=== PATIENT | female | born 1960 | race Two or more races ===

== ENCOUNTER → 2018-07-18 | Outpatient (CLI) | payer OTHER ==
[~2018-07-18] MED LIST: CYCL10 PO; LISI20 PO; PREG50 PO; PROM25 PO; ROSU10TA PO; Ultram50 MG PO; Zofran Odt4 MG SL
[2018-07-18 12:40] LABS: Source, Urine Clean Catch
[2018-07-18 13:23] LABS: Appearance, Urine Clear (Clear); Bilirubin, Urine Neg (Neg); Blood, Urine Neg (Neg); Color, Urine Yellow (P-Yellow); Glucose Qualitative, Urine 4+ (Neg); Ketones, Urine Neg (Neg); Leukocyte Esterase, Urine Neg (Neg); Nitrite, Urine Neg (Neg); Protein, Urine 3+ (Neg); Urobilinogen, Urine NORM (Normal)
[2018-07-18 13:41] LABS: Squamous Epithelial Cells Rare /hpf (Few)
[2018-07-18 13:42] LABS: Bacteria Rare /hpf; Red Blood Cells, Urine 0-2 /hpf (0-2); White Blood Cells, Urine 0-2 /hpf (0-5)
== END | disposition home or self-care (01) ==
LOC: LAB 12:39 → LAB SHORT 12:39
PROVIDERS: Internal Medicine
DX: N39.0 Urinary tract infection, site not specified (principal)
CPT/HCPCS: 81001

== ENCOUNTER → 2019-05-08 | Outpatient (CLI) | payer OTHER | END | disposition home or self-care (01) | LOC: LAB EV 16:53 → LAB SHORT 16:53 | DX: N39.0 Urinary tract infection, site not specified (principal) | CPT/HCPCS: 87077; 87086; 87186 ==

== ENCOUNTER 2019-08-22 08:09 | Inpatient (IN) | payer OTHER ==
--- NOTE | 2019-08-20 09:36 | NUR ---
Ambulatory in Day Surgery. History, Chart, Medications and Allergies reviewed before start of procedure.Patient confirms NPO status and agrees with scheduled surgery. Patient reports completing Chlorhexadine shower X2 prior to admission to hospital.PT REPORTS 5 DAYS OF SHOWERS AND MUPIROCIN OINTMENT COMPLETED. Surgical site prepped with 2% Chlorhexidine cloth wipe. Lungs clear T/O to Auscultation. PERSONAL BAG WILL BE TAKEN TO PACU
--- NOTE | 2019-08-20 12:58 | NUR ---
08/20/19 1258 Marichuy Shaw IMPLANTS PLACED IN RIGHT KNEE THAT ARE NOT CURRENTLY IN COMPUTER SYSTEM: REF:[id number], LOT:[id number], EXP:05/23/24, DESCRIPTION:FEMORAL COMPONENT
--- NOTE | 2019-08-20 15:32 | NUR ---
PT ARRIVED TO UNIT FROM PACU. A&OX4. VSS. 02 SATS 98% ON 2L NC. DRESSING TO RLE CDI; WRAPPED IN BYRON WRAP. POLAR PACK IN PLACE. PT RATED PAIN 5/10 UPON ARRIVAL WHICH HAS INCREASED TO 7/10. MEDICATED PER ORDERS FOR PAIN. TOLERATING CLEARS. PROVIDED CRACKERS. CALL LIGHT IN REACH.
--- NOTE | 2019-08-20 18:08 | NUR ---
SUMMARY PT S/P R TKA THIS SHIFT. MEDICATED PT PER ORDERS FOR PAIN, PT REPORTING PAIN LEVEL TOLERABLE AT THIS TIME. PT AMBULATED IN ROOM AND VOIDED. SITTING UP IN CHAIR, EATING DINNER. BYRON WRAP AND AQUACEL TO R KNEE CDI. CALL LIGHT IN REACH.
[2019-08-21 04:51] LABS: BASOPHILS ABSOLUTE AUTO 0.05 K/mm3 (0.00-0.23); BASOPHILS PERCENT AUTO 1 % (0-2); EOSINOPHILS ABSOLUTE AUTO 0.12 K/mm3 (0.00-0.68); EOSINOPHILS PERCENT AUTO 1 % (0-6); Hematocrit 34.6 % (33.0-51.0); Hemoglobin 11.2 g/dL (11.5-16.0); IMMATURE GRAN ABSOLUTE AUTO 0.03 K/mm3 (0.00-0.10); IMMATURE GRAN PERCENT AUTO 0 % (0-1); LYMPHOCYTES ABSOLUTE AUTO 2.58 K/mm3 (0.84-5.20); LYMPHOCYTES PERCENT AUTO 25 % (21-46); MONOCYTES ABSOLUTE AUTO 0.71 K/mm3 (0.16-1.47); MONOCYTES PERCENT AUTO 7 % (4-13); Mean Corpuscular HGB 29.5 pg (26.0-34.0); Mean Corpuscular HGB Conc 32.4 g/dL (31.5-36.5); Mean Corpuscular Volume 91 fL (80-100); Mean Platelet Volume 9.3 fL (9.1-12.4); NEUTROPHILS ABSOLUTE AUTO 6.87 K/mm3 (1.96-9.15); NEUTROPHILS PERCENT AUTO 66 % (41-73); Platelet Count 283 K/mm3 (150-400); RDW Coefficient Variation 13.2 % (11.7-14.2); RDW Standard Deviation 43.8 fL (35.1-46.3); White Blood Cell Count 10.36 K/mm3 (4.00-11.30)
--- NOTE | 2019-08-21 04:54 | NUR ---
SHIFT SUMMARY POD 1 RTKA AA0X4, VSS. DRESSING CDI. POLAR MARIMAR IN PLACE. PT AMBULATING TO AND FROM BATHROOM WITH FWW. FOLLOWING PRECAUTIONS WELL. VOIDING WELL. MEDICATED FOR PAIN PER EMAR. REPORTS PAIN MANAGED WELL WITH MEDICATION. PLAN IS TO WORK WITH PT/OT TODAY AND POSSIBLY DISCHARGE.
[2019-08-21 05:07] LABS: Bun/Creatinine Ratio 18.8 (12.0-20.0); Calcium, Blood 8.8 mg/dL (8.5-10.1); Creatinine, Blood 1.01 mg/dL (0.40-1.00)
--- NOTE | 2019-08-21 08:38 | NUR ---
DR DUGAN HERE RECENTLY TO SEE PT. REPORTS TO HAVE HOSPITALIST CONSULT FOR HTN.
--- NOTE | 2019-08-21 09:20 | NUR ---
DR BAILEY TO SEE PT SHE WAS CONSULTED FOR HTN.
--- NOTE | 2019-08-21 10:23 | NUR ---
THERAPY WORKING WITH PT.
--- NOTE | 2019-08-21 10:30 | NUR ---
PT WORKING WITH PT CHAUNCEY AM.
--- NOTE | 2019-08-21 14:05 | NUR ---
THERAPY IN WITH PT. PT CONT TO REPORT INCREASED PAIN. PT MED WITH FLEXERIL AND LYRICA. PT BEEN MED WITH PAIN MED. DISCUSSED PT'S STATUS WITH ORTHO COORDINATOR.
--- NOTE | 2019-08-21 14:29 | NUR ---
PT STATES OTHER MEDICATIONS STARTING TO HELP WITH PAIN, CONT TO REPORT PAIN 10/20. PT NOT CLEARED BY THERAPY TO GO HOME TODAY, ORTHO COORDINATOR AWARE, CALL OUT TO 'S OFFICE.
--- NOTE | 2019-08-21 15:30 | NUR ---
Patient is sitting on a chair and alert. Patient tells me about how her surgery went and how her pain is at the time of visit (8). Patient explains that she has recently been given pain meds. Patient tells me about her lutheran background, her family dynamics and the [place]. Patient tells me personal stories as well. I listen empathically, reinforce helpful attitudes and practices, encourage self-care and provide pastoral counseling specialist and prayer. Patient responds well and states that she has a greater degree of peace. I will continue to remain available to patient and family.
--- NOTE | 2019-08-21 17:08 | NUR ---
SHIFT SUMMARY PT POD #1 FOR RIGHT TOTAL KNEE. PT REPORTS PAIN AT 8/10-10/10 TODAY. PT EXPERIENCED HTN THIS AM DUE TO INCREASED PAIN. PAIN IS BEING MANAGED WITH ORAL PAIN MEDS. PT UP IN THE CHAIR AND GETS UP TO VOID. KNEE HIGH TEDS AND SCD'S IN PLACE. PT TOLERATES AN ADA DIET. BYRON WRAP AND AQUALCEL TO RIGHT KNEE C/D/I.
--- NOTE | 2019-08-21 17:25 | NUR ---
DR DUGAN AWARE OF PT NOT BEING DC'D TODAY.
[~2019-08-22] VITALS: Ht 170.2 cm; Wt 140.7 kg
--- NOTE | 2019-08-22 05:28 | NUR ---
POD2 ELECTIVE RT TOTAL KNEE. PATIENT WITH POLARPACK ICE PAD ON ALL NIGHT EXCEPT WHEN UP TO BR. PATIENT HAS BEEN ABLE TO GET OOB, USE FWW WITH GAIT BELT AND ONE PERSON ASSIST. RT LEG WITH PAIN 5-8/10 PAIN, RELEIVED BY REST ELEVATION, ICE PAD, AND PAIN MEDICATION. RT KNEE WITH BYRON WRAP OVER GAUZE WITHOUT EVIDENCE OF BLEEDING OR SWELLING. NO ACUTE CHANGES THIS SHIFT. PATIENT USES CALL LIGHT.
--- NOTE | 2019-08-22 07:37 | NUR ---
MAUREEN HERE TO SEE PT. PT DISCUSSING PAIN "MY LEG SLIPPED OFF THE RECLINER LAST NOC". APPEARS WNL.
[~2019-08-22 08:09] MED LIST changes: +ALBU90OI INH; +AMLO10 PO; +GLIP10 PO; +INSULANPEN SC; +LINZESS72 MCG PO; +Percocet 5-3251 EACH PO; +XARELTO20 MG PO
--- NOTE | 2019-08-22 08:55 | NUR ---
PT REPORTS PAIN "GETTING BETTER" REPORTS BETWEEN -10/20. MINE WEDGE SAWYER HERE, THERAPY HERE.
--- NOTE | 2019-08-22 12:55 | NUR ---
DR HANSEN HERE TO SEE PT, UPDATED ON PT'S STATUS.
--- NOTE | 2019-08-22 17:54 | NUR ---
SHIFT SUMMARY PT IS POD #2 FOR ELECTIVE RIGHT TOTAL KNEE. BYRON BANDAGE IN DRESSING IN PLACE AND C/D/I. POLAR PACK IN PLACE. PT GETS UP TO THE BA USING A FWW AND GAIT BELT. PT IS VOIDING AND PASSING FLATUS. PT HAS NOT HAD A BM. REPORTING PAIN AT AN 8 OR BELOW THROUGHOUT THE SHIFT. PAIN IS RELIEVED BY REST, LEG ELEVATION, ICE AND ORAL PAIN MEDS.
--- NOTE | 2019-08-22 17:55 | NUR ---
PT DID NOT CLEAR THERAPY TO GO HOME TODAY, AWARE, ORTHO COORDINATOR AWARE.
--- NOTE | 2019-08-23 06:13 | NUR ---
PATIENT IS UP TO THE BSC WITH MINIMAL ASSISTANCE, FWW AND GAIT BELT. SHE STATED THAT SHE SLEPT FOR MOST OF THE NIGHT, ONLY WAKING TO VOID AND AT THE SAME TIME ASK FOR PAIN CONTROL. SHE HAD KEPT THE POLAR PACK ON HER KNEE ALL NIGHT. THERE ARE NO ACUTE CHANGER.
[2019-08-23] MEDS ORDERED: OXYC15ER PO (14:17)
[2019-08-23] MEDS ORDERED: XARELTO20 MG PO (14:18)
[2019-08-23] MEDS ORDERED: Percocet 5-3251 EACH PO (14:23)
--- NOTE | 2019-08-23 14:50 | NUR ---
DISCHARGE: PT EATING AND DRINKING, VOIDING, PASSING GAS. PT BEEN CLEARED BY THERAPY AND RPEORTS HAVING APPR EQUIP AND HELP AT HOME. PT GIVEN SCRIPTS, PAPERWORK AND BELONGINGS. PT BEEN CLEARED BY THERAPY AND BOTH 'S TO GO HOME, SURGEON AND HOSPITALIST. IV OUT WNL.
== END 2019-08-23 15:15 | disposition home or self-care (01) | DRG 470 ==
LOC: SURS 16:32 → ORSCMMR 16:32 → SURS 08-23 15:15
PROVIDERS: ADMIT Orthopaedic Surgery
PROC: 0SRC0JA Replacement of Right Knee Joint with Synthetic Substitute, Uncemented, Open Approach (ICD-10-PCS; principal; 2019-08-20 11:30)
DX: M17.11 Unilateral primary osteoarthritis, right knee (principal); I97.3 Postprocedural hypertension; E11.9 Type 2 diabetes mellitus without complications; I10 Essential (primary) hypertension; E78.5 Hyperlipidemia, unspecified; Z79.4 Long term (current) use of insulin
CPT/HCPCS: 36415; 73560-RT; 80048; 82947; 85025; 86850; 86900; 86901; 88300; 97110; 97116; 97162; 97530; A9270-GY; C1776; J0171; J0690; J0735; J1170; J1815; J1885; J2250; J2270; J2405; J2704; J2765; J2795; J3010; J7120

== ENCOUNTER 2019-12-24 08:02 | Day surgery (SDC) | payer OTHER ==
[~2019-12-24 08:02] MED LIST changes: +OXYC15ER PO
== END 2019-12-24 09:55 | disposition home or self-care (01) ==
LOC: ORD 08:02 → CT 08:02 → ORD 08:30 → CT 09:00 → ORD 09:55
DX: I25.10 Atherosclerotic heart disease of native coronary artery without angina pectoris (principal); J45.909 Unspecified asthma, uncomplicated; E11.9 Type 2 diabetes mellitus without complications; E78.5 Hyperlipidemia, unspecified; E66.01 Morbid (severe) obesity due to excess calories; G47.33 Obstructive sleep apnea (adult) (pediatric); Z79.899 Other long term (current) drug therapy; Z79.4 Long term (current) use of insulin; Z87.891 Personal history of nicotine dependence; Z68.42 Body mass index [BMI] 45.0-49.9, adult
CPT/HCPCS: 75574; Q9967